=== PATIENT | female | born 1975 | race Two or more races ===

== ENCOUNTER → 2016-09-30 | Outpatient (CLI) | payer OTHER ==
--- NOTE | 2016-09-30 12:07 | FL ---
ESOPHOGRAM. HISTORY: Dysphagia Esophagram was performed per the air contrast technique. The patient swallowed barium and effervesce nt crystals without difficulty or delay. Esophageal peristalsis and motility appear to be within normal limits. There is no evidence for filling defect, mass or diverticulum. There is a small partially reducible hiatal hernia identified. Subsequently single contrast cervical esophagram was performed which fails demonstrate evidence for a spiration, penetration or mass. Cervical esophagus at the level of the thoracic inlet is deviated fro m right to left. Correlate for thyroid enlargement or mass. IMPRESSION: 1.There is a small partially reducible hiatal hernia identified. 2. Extrinsic mass effect upon the distal cervical esophagus at the level of the thoracic inlet is dif ficult to exclude. Correlate clinically for thyroid pathology. Consider ultrasound if felt clinically indicated.
== END | disposition home or self-care (01) ==
LOC: RADFLWHC 10:55
PROVIDERS: ATTEND Family Medicine
DX: K44.9 Diaphragmatic hernia without obstruction or gangrene (principal); R13.10 Dysphagia, unspecified
CPT/HCPCS: 74220

== ENCOUNTER 2016-11-18 09:09 | Day surgery (SDC) | payer OTHER ==
[2016-11-15 13:52] VITALS: BMI 23.6
[~2016-11-18 09:09] MED LIST: LACTATED RINGERS 1,000 ML IV SCH; LIDOCAINE 1% 20 ML VIAL (10MG/ML) FOR IV START INTRADERMA PRN
[2016-11-18 09:48] VITALS: RESP 16; TEMP 98
[2016-11-18] MEDS ORDERED: fentaNYL (PF) 50 MCG/ML 2 ML AMP IV ONE (11:17)
[2016-11-18] MEDS ORDERED: LIDOCAINE 1% INJ 10MG/ML (20 ML MDV) ONE (13:10)
[2016-11-18] MEDS ORDERED: PROPOFOL 10 MG/ML 20 ML VIAL IV ONE (13:10)
--- NOTE | 2016-11-18 13:38 | P.OP ---
Date of Procedure: 11/18/16 Preoperative Diagnosis: Dysphagia Small hiatal hernia Postoperative Diagnosis: Dysphagia Hiatal hernia, Hill grade 2 Procedure(s) Performed: Esophagogastroduodenoscopy with biopsy Anesthesia: MAC Surgeon: Sandie Garcia Pathology: none sent Condition: stable Disposition: PACU Indications for Procedure: 41 years old female presents with dysphagia and epigastric pain. Informed consent obtained and patient did undergo EGD with possible biopsy. She had barium swallow which showed small hiatal hernia. Description of Procedure: A timeout was performed to verify the correct patient and correct procedure. Patient was on continuous vitals and pulse ox monitoring throughout the procedure. She was placed in lateral decubitus position and an oral bite block was inserted. A well-lubricated Olympus upper endoscope was passed orally. The esophagus was intubated without difficulty. The vocal cords were visualised and protected at all times. The endoscope was passed beyond the pylorus into the first and second portion of the duodenum. No normality is noted in the duodenum mucosa. Two random biopsies were taken from the gastric antrum using cold biopsy forceps. The scope was then retroflexed. Small hiatal was noted which is Hill Grade 2. No mass, active ulcer or bleeding stigmata noted within the gastric lumen. The GE junction is measured at 35 cm from the incisors and diaphragmatic impression at 38 cms No evidence of reflux esophagitis. The endoscope was gradually withdrawn. No abnormality identified in the esophagus. Patient tolerated the procedure well and was taken to post anesthesia care unit in stable condition. FINAL DIAGNOSIS: Hiatal hernia Grade 2 SPECIMEN: Antral biopsy GE junction biopsy 24 hr manometry study Final Pathologic Diagnosis A. GASTRIC ANTRUM, BIOPSY: MILD CHRONIC GASTRITIS, MINIMALLY ACTIVE. IMMUNOPEROXIDASE STAIN NEGATIVE FOR HELICOBACTER PYLORI ORGANISMS (CONTROLS APPROPRIATE). B. GASTROESOPHAGEAL JUNCTION, BIOPSY: MATURE GASTRIC GLANDULAR MUCOSA SHOWING MILD CHRONIC INFLAMMATION. SQUAMOUS MUCOSA NOT PRESENT FOR EVALUATION.
[2016-11-18 13:54] VITALS: BP 141/84; PULSE 79
--- NOTE | 2017-01-02 18:32 | P.GSHP ---
History of Present Illness H&P Date: 11/18/16 41 yrs old female presents with dysphagia and heartburn. Taking 40 mg PPI daily with not much symptomatic improvement . Radiology findings discussed . THYROID US- Normal ESOPHOGRAM. HISTORY: Dysphagia Esophagram was performed per the air contrast technique. The patient swallowed barium and effervescent crystals without difficulty or delay. Esophageal peristalsis and motility appear to be within normal limits. There is no evidence for filling defect, mass or diverticulum. There is a small partially reducible hiatal hernia identified. Subsequently single contrast cervical esophagram was performed which fails demonstrate evidence for aspiration, penetration or mass. Cervical esophagus at the level of the thoracic inlet is deviated from right to left. Correlate for thyroid enlargement or mass. IMPRESSION: 1.There is a small partially reducible hiatal hernia identified. 2. Extrinsic mass effect upon the distal cervical esophagus at the level of the thoracic inlet is difficult to exclude. Correlate clinically for thyroid pathology. Consider ultrasound if felt clinically indicated. ROS Additionally reports: Constitutional: No fever, chills or rigors. No weight loss or loss of appetite. HEENT: No difficulty with hearing, vision and swallowing. Lymphatic: No axillary, inguinal and cervical swellings. Endocrine: No thyroid disorders. Denies history of diabetes. Respiratory: No chest pain, shortness of breath, and cough. No hemoptysis. Cardiovascular: No palpitations, irregular HR Gastrointestinal: Has heartburn. No change in bowel habits. Has nausea. Genitourinary: No increase in urinary frequency or urgency. No hematuria. Musculoskeletal: No back pain, joint stiffness or pain. Neurologic: No history of seizure disorder and headaches. Psychiatric: Has anxiety . No suicidal ideation. Hematologic: Denies any abnormal mucosal bleeding or easy bruising. Physical Exam Patient is a 41-year-old female. Constitutional: General Appearance: healthy-appearing, well-nourished, and well- developed. Level of Distress: NAD. Ambulation: ambulating normally. Psychiatric: Insight: good judgement. Orientation: to time, place, and person. Head: Head: normocephalic and atraumatic. Eyes: Lids and Conjunctivae: no discharge or pallor and non-injected. Sclerae: non-icteric. ENMT: Oropharynx: moist mucous membranes. Neck: Neck: supple, FROM, trachea midline, and no masses. Lymph Nodes: no cervical LAD or supraclavicular LAD. Thyroid: no enlargement. Lungs: Respiratory effort: no dyspnea. Auscultation: breath sounds normal. Cardiovascular: Heart Auscultation: normal S1 and S2 and RRR. Abdomen: Bowel Sounds: normal. Inspection and Palpation: no tenderness or guarding and soft and non-distended. Musculoskeletal:: Motor Strength and Tone: normal and normal tone. Joints, Bones , and Muscles: normal movement of all extremities. Extremities: no cyanosis or edema. Neurologic: Gait and Station: normal gait and station. Cranial Nerves: grossly intact. Assessment / Plan 1. Esophagogastroduodenoscopy with biopsy 2. Informed consent obtained from the patient after explaining the risks, benefits and potential complications of EGD including bleeding and perforation 3. Patient demonstrated understanding of the procedure and agreed to undergo EGD with possible biopsy/polypectomy 4. Robotic assist lap hiatal hernia repair in November 2016 if hiatal hernia well demonstrated on EGD. 5. May need pH and manometry study prior to surgery 1. Dysphagia R13.10: Dysphagia, unspecified LEARNING ABOUT SWALLOWING PROBLEMS 2. Gastroesophageal reflux disease with hiatal hernia K44.9: Diaphragmatic hernia without obstruction or gangrene Past Medical History Past Medical History: GERD/Reflux Additional Past Medical History / Comment(s): . History of Any Multi-Drug Resistant Organisms: None Reported Past Surgical History: Breast Surgery Additional Past Surgical History / Comment(s): Breast Augmentation and Tummy Tuck. Past Anesthesia/Blood Transfusion Reactions: No Reported Reaction Past Psychological History: No Psychological Hx Reported Smoking Status: Never smoker Past Alcohol Use History: Occasional Past Drug Use History: None Reported - Past Family History Mother Family Medical History: Cancer Sister(s) Family Medical History: Deep Vein Thrombosis (DVT) Medications and Allergies Home Medications Medication Instructions Recorded Confirmed Type Pantoprazole Sodium [Protonix] 40 mg PO QAM 11/15/16 11/18/16 History Allergies Allergy/AdvReac Type Severity Reaction Status Date / Time diphenhydramine HCl Allergy Swelling Verified 11/18/16 10:07 [From Benadryl] Surgical - Exam Vital Signs Temp Pulse Resp BP Pulse Ox 98.0 F 100 16 131/90 99 11/18/16 09:45 11/18/16 09:45 11/18/16 09:45 11/18/16 09:45 11/18/16 09:45
== END 2016-11-18 14:05 | disposition home or self-care (01) ==
LOC: ORWHC2ENDO 09:09
PROVIDERS: ATTEND Surgery
DX: K21.9 Gastro-esophageal reflux disease without esophagitis (principal); K29.50 Unspecified chronic gastritis without bleeding; K44.9 Diaphragmatic hernia without obstruction or gangrene; Z79.899 Other long term (current) drug therapy
CPT/HCPCS: 81025; 88305; 88342; 43239; J2001; J3010; J2704